=== PATIENT | male | born 1970 | race Hispanic/Latino ===

== ENCOUNTER → 2024-06-12 | Outpatient (CLI) | payer BC | END | disposition home or self-care (01) | LOC: RAH 12:10 | PROVIDERS: ATTEND Physical Medicine & Rehabilitation | DX: M53.2X6 Spinal instabilities, lumbar region (principal); M54.50 Low back pain, unspecified; M41.9 Scoliosis, unspecified | CPT/HCPCS: 72082; 72110 ==

== ENCOUNTER → 2024-08-11 | Outpatient (CLI) | payer BC | END | disposition home or self-care (01) | LOC: RAH 12:37 | PROVIDERS: ATTEND Physical Medicine & Rehabilitation | DX: M51.369 Other intervertebral disc degeneration, lumbar region without mention of lumbar back pain or lower extremity pain (principal) | CPT/HCPCS: 72131 ==